=== PATIENT | female | born 1945 | race Caucasian/White ===

== ENCOUNTER 2016-12-28 09:59 | Emergency (ER) | payer BC ==
--- NOTE | ~2016-12-28 | CN ---
Consultation Report [facility] [address] [place]. [address] NAME: GERDA WARD : 49 STATUS : [facility]#: [id number] AGE: 71 ADM/REG DATE : 12/28/16 MR#: [id number] REPORT SERV DATE: 12/28/16 DICTATED BY: JONELLE MAXWELL DATE: 12/28/16 REPORT STATUS : Draft TRANSCRIBED BY: MODL DATE: 12/28/16 MEDICAL CONSULTATION NOTE. DATE OF CONSULTATION: ATTENDING PHYSICIAN: Dr. Casas. CONSULTING PHYSICIAN: Jonelle Maxwell M.D. HISTORY OF PRESENT ILLNESS: This is a 71-year-old white female, seen at the request of Dr. Casas and Dr. Garcia's nurse practitioner. She had chest pain, acute, pleuritic, lasted for about an hour at midnight and came to the emergency room. She was evaluated with a creatinine of 4.32 with a BUN of 61. Her EKG showed no ST or T-wave changes. 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 She has swelling of her lower extremities and her albumin is 1.4. She has not had the opportunity to discuss end-of-life issues with the treating physician. She does have hope that she is improving with the current chemotherapy with her CEA dropping from 106 to 74 with the last treatment; however, she feels no better and the rate of recurrence of pleural effusions has not changed. She does have adult onset diabetes mellitus. She is on insulin by insulin pump. She was started on Zithromax on 12/26/2016. She does take lisinopril 20/12.5 one twice a day. She is also on propranolol 120 mg p.o. daily. She is on omeprazole 40 mg a day as well. SOCIAL HISTORY: She is . Lives with her . They live in [place]. She does not attend denominational. She does not smoke or drink. She occasionally enjoys a Evelyn. FAMILY HISTORY: Negative for breast cancer. REVIEW OF SYSTEMS: Chest pain is better. She is not short of breath. She has had swelling of her lower extremities. No abdominal pain. No other kinds of pain, melena, hematemesis, fits, seizures, or convulsions. No nausea or vomiting. PHYSICAL EXAMINATION: GENERAL: White female, appearing chronically ill. Very pale in appearance. Face drawn, loss of hair. HEENT: EOMI. Sclerae clear. Conjunctivae pink. NECK: No bruit without any JVD. CHEST: Clear to A and P with dullness to percussion and decreased breath sounds at the bases bilaterally. HEART: Regular S1, S2 without murmur, gallop, or click. Consultation Report [address] [place]. [address] NAME: GERDA WARD : 49 STATUS : [facility] PAT#: [id number] AGE: 71 ADM/REG DATE : 12/28/16 MR#: [id number] REPORT SERV DATE: 12/28/16 DICTATED BY: JONELLE MAXWELL DATE: 12/28/16 REPORT STATUS : Draft TRANSCRIBED BY: PLOO DATE: 12/28/16 ABDOMEN: Soft, nontender, slightly protuberant. EXTREMITIES: Have 4+ pitting edema bilaterally. NEUROLOGIC: She withdraws to plantar stimulation. [employer] equal and symmetric bilaterally. LABORATORY: EKG shows normal sinus rhythm, low voltage throughout, borderline EKG. Troponin 0.07. Creatinine 4.32. BUN of 61, the CO2 was 19, sodium 142, potassium 5.3, hemoglobin 11.8, hematocrit 35.8, white count 12.8, and platelets 110,000. INR 1.1. Liver tests normal. ASSESSMENT: 1. Ovarian cancer with metastasis with some chemical marker response to treatment. 2. Malnutrition. Albumin 1.8. She is not eating. Her acknowledges this. She has not taken any protein. 3. Recurrent pleural effusions. 4. Distal edema. 5. Chronic kidney disease stage 5 now. We will stop the lisinopril and change from the hydrochlorothiazide to Lasix to see if symptomatic edema may improve. 6. Mediastinal mass with recurrent pleural effusion. PLAN: I talked to Dr. Garcia's nurse practitioner. I do not see anything we can do meaningful for her in the hospital. I am going to discharge her home with Lortab and have her follow back up with Dr. Garcia for discussions, not limited to, but to include end- of-life care. Offered consideration for hospice care, placing of a PleurX catheter, and home care. Dr. Garcia's nurse practitioner says that Dr. Garcia has had this conversation with her in the past. The patient does not recall, therefore we will defer to Dr. Garcia's judgment regarding this. ADDENDUM: With the progressive renal failure, malnutrition severe with albumin level of 1.6, recurrent pleural effusions, and known wide metastasis of the ovarian cancer, my estimation that the patient's life expectancy is less than or equal to 6 months which would qualify her for hospice care. I recommend discharge home. DB/MODL Jonelle Maxwell M.D. / [id number] CC: Lauren Rutledge M.D. Consultation Report [address] [address] NAME: GERDA WARD : 49 STATUS : [facility] PAT#: [id number] AGE: 71 ADM/REG DATE : 12/28/16 MR#: [id number] REPORT SERV DATE: 12/28/16 DICTATED BY: JONELLE MAXWELL DATE: 12/28/16 REPORT STATUS : Draft TRANSCRIBED BY: POLO DATE: 12/28/16 Moises Harmon M.D.
[2016-12-28 08:50] LABS: BASOPHILS 0.1 %; BASOPHILS ABSOLUTE 0.01 10/3/uL (0.0-0.16); EOSINOPHILS 0.2 %; EOSINOPHILS ABSOLUTE 0.02 10/3/uL (0.0-0.53); ER CBC TAT 0 Hrs 05 Mins; HEMOGLOBIN 11.8 g/dL (12.0-16.0); IMMATURE GRANULOCYTES 0.3 %; IMMATURE GRANULOCYTES ABSOLUTE 0.04 10/3/uL (0.0-0.11); LYMPHOCYTES 7.7 %; LYMPHOCYTES ABSOLUTE 0.99 10/3/uL (0.67-4.30); MEAN CORPUSCULAR HEMOGLOB 30.6 pg (26.0-34.0); MEAN CORPUSCULAR VOLUME 92.7 fL (80-100); MEAN PLATELET VOLUME 11.5 fL (9.2-13.0); MONOCYTES 1.7 %; MONOCYTES ABSOLUTE 0.22 10/3/uL (0.21-1.20); NEUTROPHILS ABSOLUTE 11.62 10/3/uL (2.02-8.40); RBC DISTRIBUTION WIDTH 16.9 % (12.0-16.0); RED CELL COUNT 3.86 10/6/uL (4.0-5.6); WHITE BLOOD CELLS 12.9 10/3/uL (4.5-10.5)
[2016-12-28 08:51] LABS: HEMATOCRIT 35.8 % (36.0-48.0); MANUAL DIFF NO %; PLATELET COUNT 110 10/3/uL (150-400)
[2016-12-28 08:58] LABS: INTERNATIONAL NORMAL RATI 1.1 UNITS (-)
[2016-12-28 09:00] LABS: PROTIME (NOT ORD) 14.5 SEC (12.0-14.5)
[2016-12-28 09:09] LABS: A/G RATIO 0.7 (0.7-1.9); ALBUMIN 1.6 G/DL (3.5-5.0); ALKALINE PHOSPHATASE 89 U/L (45-117); BUN (BLOOD UREA NITROGEN) 61 MG/DL (6-23); CALCIUM, SERUM 7.5 MG/DL (8.5-10.4); CHLORIDE, SERUM 111 MMOL/L (96-112); CO2 (CARBON DIOXIDE) 19 MMOL/L (24-34); CREATININE 4.32 MG/DL (0.55-1.02); GFR AFRICAN AMERICAN 11 ML/MIN (>=60); GFR NON AFRICAN AMERICAN 10 ML/MIN (>=60); GLOBULIN 2.3 G/DL (2.5-4.1); GLUCOSE, SERUM 119 MG/DL (60-99); POTASSIUM, SERUM 5.3 MMOL/L (3.5-5.3); SGOT(AST) 31 U/L (5-40); SGPT(ALT) 27 U/L (5-65); SODIUM, SERUM 142 MMOL/L (135-148); TOTAL BILIRUBIN 0.3 MG/DL (0-1.2); TOTAL PROTEIN 3.9 G/DL (6.0-8.5)
[2016-12-28 09:10] LABS: TROPONIN I 0.07 NG/ML (<0.05)
[~2016-12-28 09:59] MED LIST: ACCUNEB INH; AMITIZA24 PO; ASAB PO; BIOTIN10 MG OR; CENTRUM PO; CENTRUM TAB1 TAB PO; ERY-TAB250 MG PO; ERY-TAB500 MG PO; HUMAPUMP SC; INDE120LA; LIPITOR10 PO; NOVLOGPUMP SC; PRINZIDE1 TAB; PROAIR HFA INH; PROMETRIUM PO; PROTONIX PO; SYN.05 PO; VITAMIN A8000 UNIT PO; VITAMIN B-121000 MC1 SL; VITAMINS/HERBS; VITC500 PO; ZESTORETIC1 TAB PO; ZYRTEC ALLGY10 MG PO; [UNRECOGNIZED DRUG - OTHER] OR
[2016-12-28] MEDS ORDERED: Z-PAK PO (10:27)
[2016-12-28] MEDS ORDERED: PRILOSEC40 MG PO (10:28)
[2016-12-28] MEDS ORDERED: INDE120LA PO (10:28)
[2016-12-28] MEDS ORDERED: PRINZIDE1 TA1 PO (10:28)
[2016-12-28] MEDS ORDERED: NOVLOGPUMP SC (10:28)
[2016-12-28] MEDS ORDERED: ZYRTEC ALLGY10 MG PO (10:28)
[2017-02-11] MEDS ORDERED: NTG150 SL (11:55)
[2017-02-11] MEDS ORDERED: INDE120LA PO (11:55)
[2017-02-11] MEDS ORDERED: NOVLOGPUMP SC (11:56)
[2017-02-11] MEDS ORDERED: PRILOSEC40 MG PO (11:56)
== END 2016-12-28 11:22 | disposition home or self-care (01) ==
LOC: ER 09:59
PROVIDERS: Emergency Medicine
DX: R07.89 Other chest pain (principal); C56.9 Malignant neoplasm of unspecified ovary; E10.9 Type 1 diabetes mellitus without complications; Z88.5 Allergy status to narcotic agent; Z88.2 Allergy status to sulfonamides; Z79.899 Other long term (current) drug therapy; Z79.4 Long term (current) use of insulin; Z88.8 Allergy status to other drugs, medicaments and biological substances
CPT/HCPCS: 71010; 80053; 82962; 84484; 85025; 85610; 93005; 99285; A9270-GY